=== PATIENT | male | born 1940 | race Caucasian/White ===

== ENCOUNTER → 2019-01-22 | Outpatient (CLI) | payer MEDICARE ==
--- NOTE | 2019-01-22 09:23 | MR ---
EXAMINATION TYPE: MR brain and iac wo/w con DATE OF EXAM: 01/22/2019 COMPARISON: NONE HISTORY: Left side hearing loss, loss of balance, transient loss of awareness, transient global amnes ia TECHNIQUE: Multiplanar, multisequence images of the brain and brainstem including internal auditory canals are a ll performed without and with IV contrast, utilizing 7.5 mL intravenous Gadavist . FINDINGS: Diffusion weighted images demonstrate no evidence of a recent infarct or other diffusion ab normality. There is no worrisome extra-axial fluid collection. There is ventricular and sulcal promi nence consistent with diffuse cerebral atrophy with slight asymmetry of the ventricles right larger t cordoba left. There are focal and confluent areas of T2 hyperintensity seen throughout the white matter b ilaterally most prominent periventricular levels. Midline structures demonstrate normal morphology. The craniocervical junction appears within normal limits. Post contrast images demonstrate no abnormal enhancement. The dural venous sinuses appear pa tent. The visualized sinuses are clear and the globes are intact. No suspicious opacification mastoid air cells is present bilaterally. Vestibulocochlear complexes are symmetric and felt within normal limits. No suspicious enhancing cerebellopontine angle mass is iden tified bilaterally IMPRESSION: 1. No suspicious fluid signal or enhancing mass to comp for patient's left-sided hearing loss and los s of balance. 2. There is mild to moderate diffuse cerebral atrophy and moderate to severe chronic small vessel isc hemic change noted.
== END ==
LOC: RADMRIMAIN 07:50
PROVIDERS: ATTEND Nurse Practitioner Family
DX: G31.9 Degenerative disease of nervous system, unspecified (principal); I67.82 Cerebral ischemia; R27.0 Ataxia, unspecified; H91.90 Unspecified hearing loss, unspecified ear; H93.19 Tinnitus, unspecified ear; G45.4 Transient global amnesia; G52.9 Cranial nerve disorder, unspecified; R40.4 Transient alteration of awareness
CPT/HCPCS: 70553; A9585